=== PATIENT | male | born 1945 | race Two or more races ===

== ENCOUNTER 2019-03-07 23:22 | Emergency (ER) | payer OTHER ==
[~2019-03-07] VITALS: Ht 157.5 cm; Wt 34.0 kg
[2019-03-08 00:41] LABS: BASO # 0.1 x10^3/uL (0.0-0.2); BASO % 1 % (0-3); EOS # 0.2 x10^3/uL (0.0-0.7); EOS % 2 % (0-3); HEMATOCRIT 42.6 % (39.0-53.0); HEMOGLOBIN 14.2 g/dL (13.0-17.5); LYMPH # 1.3 x10^3/uL (1.0-4.8); LYMPH % 12 % (24-48); MEAN CORPUSCULAR HEMOGLOBIN 31 pg (25-35); MEAN CORPUSCULAR HGB CONC 33 g/dL (31-37); MEAN CORPUSCULAR VOLUME 92 fL (79-100); MONO # 0.5 x10^3/uL (0.0-1.1); MONO % 4 % (0-9); NEUT % 81 % (31-73); PLATELET COUNT 167 x10^3/uL (140-400); RED BLOOD COUNT 4.63 x10^6/uL (4.30-5.70); RED CELL DISTRIBUTION WIDTH 13.3 % (11.5-14.5)
[2019-03-08 00:53] LABS: CALCIUM 9.2 mg/dL (8.5-10.1); CREATININE 0.7 mg/dL (0.7-1.3); GFR 110.2; POTASSIUM 3.5 mmol/L (3.5-5.1)
[2019-03-08 00:59] LABS: ALBUMIN 3.4 g/dL (3.4-5.0); ALBUMIN/GLOBULIN RATIO 0.8 (1.0-1.7); TOTAL BILIRUBIN 0.3 mg/dL (0.2-1.0); TOTAL PROTEIN 7.5 g/dL (6.4-8.2)
[2019-03-08] MEDS ORDERED: ONDANSETRON PF 4 MG/2 ML VIAL. IV ONE (01:00)
[2019-03-08] MEDS ORDERED: IV NORMAL SALINE 500ML BAG 500 ML IV ONE (01:00)
--- NOTE | 2019-03-08 01:38 | RAD ---
INDICATION: Dizziness COMPARISON: None. TECHNIQUE: Axial CT images obtained through the head without intravenous contrast. One or more of the following individualized dose reduction techniques were utilized for this examination: 1. Automated exposure control; 2. Adjustment of the mA and/or kV according to patient size; 3. Use of iterative reconstruction technique. FINDINGS: No intracranial hemorrhage. No midline shift. Basal cisterns patents. Ventricles and sulci are globally prominent. No acute osseous abnormality. Orbits and paranasal sinuses unremarkable. Scattered foci of low attenuation within the white matter. IMPRESSION: 1. No acute intracranial hemorrhage. 2. Scattered regions of low attenuation within the white matter. Non-specific in nature but frequently secondary to chronic small vessel ischemic disease. 3. Prominence of ventricles and sulci which is frequently secondary to age related volume loss. Electronically signed by: Gallito Leigh MD (03/08/2019 1:36 AM) [id number]
[2019-03-08 01:54] VITALS: BP 117/63
--- NOTE | 2019-03-08 01:57 | PHYS DOC ---
Past Medical History Past Medical History: Unknown Past Surgical History: Other Alcohol Use: None Drug Use: None Adult General Chief Complaint Chief Complaint: MULTIPLE COMPLAINTS HPI HPI 73-year-old [place]oth[place] male presents secondary to weakness and dizziness. There's been no fever chills or sweats. He denies any significant headache. He doesn't describe the room is spinning just feels generally weak. Family states he's really had no other medical problems. They have noticed that he's lost some weight and is down to 75 pounds at this time. There has not been any history of cough. No complaints of abdominal pain. He has no shortness of breath. He has no headache or lateralizing neurologic weakness.[] Review of Systems Review of Systems Constitutional: Denies fever or chills [] Eyes: Denies change in visual acuity, redness, or eye pain [] HENT: Denies nasal congestion or sore throat [] Respiratory: Denies cough or shortness of breath [] Cardiovascular: No additional information not addressed in HPI [] GI: Denies abdominal pain, nausea, vomiting, bloody stools or diarrhea [] : Denies dysuria or hematuria [] Musculoskeletal: Denies back pain or joint pain [] Integument: Denies rash or skin lesions [] Neurologic: Reports dizziness[] Endocrine: Denies polyuria or polydipsia [] All other systems were reviewed and found to be within normal limits, except as documented in this note. Current Medications Current Medications Current Medications Medications (Trade) Dose Ordered Sig/Monica Start Time Stop Time Status Last Admin Dose Admin Ondansetron HCl (Zofran) 4 mg 1X ONCE 03/08/19 01:00 03/08/19 01:01 DC 03/08/19 00:36 4 MG Sodium Chloride 500 ml @ 500 mls/hr 1X ONCE 03/08/19 01:00 03/08/19 01:59 03/08/19 00:38 500 MLS/HR Allergies Allergies Allergies Coded Allergies Type Severity Reaction Last Updated Verified No Known Drug Allergies 03/08/19 No Physical Exam Physical Exam Constitutional: Frail, small elderly male in no distress. [] HENT: Normocephalic, atraumatic, bilateral external ears normal, oropharynx [address], no oral exudates, nose normal. [] Eyes: PERRLA, EOMI, conjunctiva normal, no discharge. [] Neck: Normal range of motion, no tenderness, supple, no stridor. [] Cardiovascular:Heart rate regular rhythm, no murmur [] Lungs & Thorax: Bilateral breath sounds clear to auscultation [] Abdomen: Bowel sounds normal, soft, no tenderness, no masses, no pulsatile masses. [] Skin: Warm, dry, no erythema, no rash. [] Back: No tenderness, no CVA tenderness. [] Extremities: No tenderness, no cyanosis, no clubbing, ROM intact, no edema. [] Neurologic: Alert and oriented X 3, normal motor function, normal sensory function, no focal deficits noted. [] Current Patient Data Vital Signs Vital Signs Date Time Temp Pulse Resp B/P (MAP) Pulse Ox O2 Delivery O2 Flow Rate FiO2 03/08/19 00:10 97.9 72 25 139/71 (93) 98 Room Air 97.9 Lab Values Laboratory Tests Test 03/08/19 00:28 White Blood Count 11.0 x10^3/uL (4.0-11.0) Red Blood Count 4.63 x10^6/uL (4.30-5.70) Hemoglobin 14.2 g/dL (13.0-17.5) Hematocrit 42.6 % (39.0-53.0) Mean Corpuscular Volume 92 fL (79-100) Mean Corpuscular Hemoglobin 31 pg (25-35) Mean Corpuscular Hemoglobin Concent 33 g/dL (31-37) Red Cell Distribution Width 13.3 % (11.5-14.5) Platelet Count 167 x10^3/uL (140-400) Neutrophils (%) (Auto) 81 % (31-73) H Lymphocytes (%) (Auto) 12 % (24-48) L Monocytes (%) (Auto) 4 % (0-9) Eosinophils (%) (Auto) 2 % (0-3) Basophils (%) (Auto) 1 % (0-3) Neutrophils # (Auto) 9.0 x10^3uL (1.8-7.7) H Lymphocytes # (Auto) 1.3 x10^3/uL (1.0-4.8) Monocytes # (Auto) 0.5 x10^3/uL (0.0-1.1) Eosinophils # (Auto) 0.2 x10^3/uL (0.0-0.7) Basophils # (Auto) 0.1 x10^3/uL (0.0-0.2) Sodium Level 142 mmol/L (136-145) Potassium Level 3.5 mmol/L (3.5-5.1) Chloride Level 103 mmol/L (98-107) Carbon Dioxide Level 32 mmol/L (21-32) Anion Gap 7 (6-14) Blood Urea Nitrogen 9 mg/dL (8-26) Creatinine 0.7 mg/dL (0.7-1.3) Estimated GFR (Cockcroft-Gault) 110.2 BUN/Creatinine Ratio 13 (6-20) Glucose Level 105 mg/dL (70-99) H Calcium Level 9.2 mg/dL (8.5-10.1) Total Bilirubin 0.3 mg/dL (0.2-1.0) Aspartate Amino Transferase (AST) 30 U/L (15-37) Alanine Aminotransferase (ALT) 27 U/L (16-63) Alkaline Phosphatase 63 U/L (46-116) Troponin I Quantitative < 0.017 ng/mL (0.000-0.055) Total Protein 7.5 g/dL (6.4-8.2) Albumin 3.4 g/dL (3.4-5.0) Albumin/Globulin Ratio 0.8 (1.0-1.7) L Laboratory Tests 03/08/19 00:28 Laboratory Tests 03/08/19 00:28 EKG EKG [] Interpretation Time: EKG: Normal sinus rhythm rate of [address]-T changes Radiology/Procedures Radiology/Procedures [] Impressions: PROCEDURE: CT HEAD WO CONTRAST INDICATION: Dizziness COMPARISON: None. TECHNIQUE: Axial CT images obtained through the head without intravenous contrast. One or more of the following individualized dose reduction techniques were utilized for this examination: 1. Automated exposure control; 2. Adjustment of the mA and/or kV according to patient size; 3. Use of iterative reconstruction technique. FINDINGS: No intracranial hemorrhage. No midline shift. Basal cisterns patents. Ventricles and sulci are globally prominent. No acute osseous abnormality. Orbits and paranasal sinuses unremarkable. Scattered foci of low attenuation within the white matter. IMPRESSION: 1. No acute intracranial hemorrhage. 2. Scattered regions of low attenuation within the white matter. Non-specific in nature but frequently secondary to chronic small vessel ischemic disease. 3. Prominence of ventricles and sulci which is frequently secondary to age related volume loss. Course & Med Decision Making Course & Med Decision Making Pertinent Labs and Imaging studies reviewed. (See chart for details) [ED course: Evaluation reveals a frail 73-year-old male in no significant distress. Workup to this point is unrevealing. His chest x-ray does not show any evidence of acute changes do interstitial changes but no significant his CT scan shows chronic white matter ischemic changes. I believe the patient is safe for discharge home this time.] Dragon Disclaimer Dragon Disclaimer This electronic medical record was generated, in whole or in part, using a voice recognition dictation system. Departure Departure Impression: Primary Impression: Dizziness Disposition: 01 HOME, SELF-CARE Condition: STABLE Referrals: NO PCP (PCP) Patient Instructions: Dizziness Additional Instructions: Return to the emergency department with new or concerning symptoms KIN PARADA DO Mar 08, 2019 01:57
[2019-03-08 02:04] LABS: BILIRUBIN,URINE NEGATIVE (NEG); CLARITY,URINE CLEAR; COLOR,URINE YELLOW; NITRITE,URINE NEGATIVE (NEG); PROTEIN,URINE NEGATIVE (NEG-TRACE); UROBILINOGEN,URINE 0.2 mg/dL (0.2 mg/dL)
[2019-03-08 02:12] LABS: BACTERIA,URINE 0 /HPF (0-FEW); RBC,URINE OCC /HPF (0-2); SQUAMOUS EPITHELIAL CELL,UR OCC /LPF; WBC,URINE OCC /HPF (0-4)
--- NOTE | 2019-03-08 05:49 | EKG ---
[facility] [address] [place] [address] Test Date: 2019-03-08 Test Time: 01:14:37 Pat Name: SAILAJA WALKER Department: Room: Gender: Inventory Analyst: : 1945 Requested By: KIN PARADA Order Number: [id number] Reading MD: Measurements Intervals [place] Rate: 87 P: 61 FL: 194 QRS: 80 QRSD: 86 T: 76 QT: 372 QTc: 453 Interpretive Statements SINUS RHYTHM LEFT ATRIAL ABNORMALITY QRS(T) CONTOUR ABNORMALITY CONSISTENT WITH ANTEROSEPTAL INFARCT AGE UNDETERMINED ABNORMAL ECG No previous ECG available for comparison
--- NOTE | 2019-03-08 08:42 | RAD ---
EXAM: CHEST 1 VIEW. HISTORY: Weight loss, chills. COMPARISON: None. FINDINGS: A frontal view of the chest is obtained. Hyperinflation is consistent with chronic obstructive pulmonary disease. Scattered interstitial opacities bilaterally indicate scarring or interstitial lung disease. There is no pneumothorax or clear pleural effusion. The heart is not enlarged. IMPRESSION: 1. Chronic obstructive pulmonary disease with superimposed scarring or interstitial lung disease. Electronically signed by: Tim Zimmerman MD (03/08/2019 8:39 AM) [facility]
== END 2019-03-08 02:23 | disposition home or self-care (01) ==
LOC: ER 23:22
DX: R42 Dizziness and giddiness (principal); R53.1 Weakness
CPT/HCPCS: 36415; 70450; 71045; 80053; 81001; 84484; 85025; 87086; 93005; 96361; 96374; 99285; J2405; J7040

== ENCOUNTER 2020-07-25 15:07 | Emergency (ER) | payer OTHER ==
[~2020-07-25] VITALS: Ht 160 cm; Wt 45.0 kg
[2020-07-25] MEDS ORDERED: IV NORMAL SALINE 1000ML BAG 1,000 ML IV ONE (15:45)
[2020-07-25 16:15] LABS: BASO % 1 % (0-3); EOS % 0 % (0-3); HEMATOCRIT 42.5 % (39.0-53.0); HEMOGLOBIN 14.5 g/dL (13.0-17.5); LYMPH # 1.4 x10^3/uL (1.0-4.8); LYMPH % 19 % (24-48); MEAN CORPUSCULAR HEMOGLOBIN 31 pg (25-35); MEAN CORPUSCULAR HGB CONC 34 g/dL (31-37); MEAN CORPUSCULAR VOLUME 90 fL (79-100); MONO # 0.4 x10^3/uL (0.0-1.1); MONO % 6 % (0-9); NEUT # 5.6 x10^3/uL (1.8-7.7); NEUT % 75 % (31-73); PLATELET COUNT 231 x10^3/uL (140-400); RED BLOOD COUNT 4.74 x10^6/uL (4.30-5.70); RED CELL DISTRIBUTION WIDTH 13.6 % (11.5-14.5); WHITE BLOOD COUNT 7.5 x10^3/uL (4.0-11.0)
[2020-07-25 16:17] LABS: BILIRUBIN,URINE SMALL (NEG); CLARITY,URINE CLEAR; NITRITE,URINE NEGATIVE (NEG); PH,URINE 5.5 (<5.0-8.0); PROTEIN,URINE NEGATIVE (NEG-TRACE)
[2020-07-25 16:22] LABS: COLOR,URINE YELLOW
[2020-07-25 16:22] LABS: PROTHROMBIN TIME PATIENT 13.3 SEC (11.7-14.0)
[2020-07-25 16:24] LABS: HYALINE CASTS, URINE FEW /HPF
[2020-07-25 16:25] LABS: BACTERIA,URINE 0 /HPF (0-FEW); WBC,URINE 0 /HPF (0-4)
[2020-07-25 16:30] LABS: INFLUENZA A PATIENT NEGATIVE (NEGATIVE); INFLUENZA B PATIENT NEGATIVE (NEGATIVE)
--- NOTE | 2020-07-25 16:37 | RAD ---
Single view chest dated 07/25/2020. Comparison made to 03/08/2019. Clinical data indication: Cough for 3 weeks. FINDINGS: Single upright portable exam performed. Heart and mediastinal contours are stable. Lungs are hyperinflated. There is a peripheral area of consolidation at the upper to mid zone on the right that appears more prominent from prior exam. There is also some patchy and linear perihilar opacities, similar to slightly increased. No definite pleural effusion or pneumothorax. IMPRESSION: 1. Peripheral area of consolidation at the mid to upper lung zone on the right, increased in size from prior study. Although this could be related to inflammatory process or focal pleural thickening, neoplastic processes are not excluded. Chest CT may provide additional information. 2. Patchy perihilar opacities, similar to slightly increased,. This could be related to acute on chronic bronchial inflammatory process. Atypical infection not excluded. 3. Findings consistent with COPD. Electronically signed by: Modesto Sandhu MD (07/25/2020 4:34 PM) [id number]
[2020-07-25 17:10] LABS: CALCIUM 8.4 mg/dL (8.5-10.1); CREATININE 0.7 mg/dL (0.7-1.3); GFR 109.9; POTASSIUM 4.2 mmol/L (3.5-5.1)
[2020-07-25 17:16] LABS: ALBUMIN 3.3 g/dL (3.4-5.0); ALBUMIN/GLOBULIN RATIO 0.8 (1.0-1.7); MAGNESIUM 2.1 mg/dL (1.8-2.4); TOTAL PROTEIN 7.4 g/dL (6.4-8.2)
[2020-07-25 17:24] LABS: CREATINE KINASE 67 U/L (39-308)
--- NOTE | 2020-07-25 17:34 | RAD ---
Exam: CT of chest without contrast INDICATION: Cough TECHNIQUE: Sequential axial images through the chest obtained without IV contrast. Sagittal and coronal reformatted images were reconstructed from the axial data and reviewed. Comparisons: Chest x-ray same day FINDINGS: Calcified heterogenous appearance of the thyroid. No enlarged mediastinal lymph nodes are identified. Heart size is normal. No pericardial effusion. Mild coronary artery calcifications are noted. Thoracic aorta has a normal course and caliber. Pulmonary artery is not enlarged. Airways are patent. No consolidation or pneumothorax. Strandy opacities at periphery of the lungs bilaterally greater on the right. There is a 5 mm nodule right upper lobe series 2 image 23. Right apical scarring. No pleural effusion or thickening. Visualized upper abdomen is unremarkable. No suspicious osseous lesions or acute fractures. IMPRESSION: 1. Strandy peripheral opacities at the lungs greater on the right likely related to scarring. No focal consolidation identified. 2. A 5 mm nodule in the right upper lobe. In a low-risk patient no further follow-up imaging is recommended. In a high-risk patient optional one-year follow-up CT performed. Exposure: One or more of the following in the visualized dose reduction techniques were utilized for this examination: 1. Automated exposure control 2. Adjustment of the MA and/or KV according to patient size 3. Use of iterative of reconstructive technique Electronically signed by: Gasper Simpson MD (07/25/2020 5:31 PM) [id number]
--- NOTE | 2020-07-25 18:01 | EKG ---
[facility] [address] [place] [address] Test Date: 2020-07-25 Test Time: 15:46:53 Pat Name: SAILAJA WALKER Department: Room: Gender: M Receiving Room Clerk: : 1945 Requested By: AUSTYN FORBES Order Number: [id number] Reading MD: Measurements Intervals [place] Rate: 89 P: 107 MA: 176 QRS: 93 QRSD: 84 T: 100 QT: 354 QTc: 432 Interpretive Statements SINUS RHYTHM LEFT ATRIAL ABNORMALITY RIGHTWARD AXIS QRS(T) CONTOUR ABNORMALITY CONSIDER HIGH LATERAL INFARCT ABNORMAL ECG RI6.02 No previous ECG available for comparison
[2020-07-25] MEDS ORDERED: cefTRIAXone IV Push 1 GM VIAL. IVP ONE (18:15)
[2020-07-25 18:47] VITALS: BP 123/70
[2020-07-25] MEDS ORDERED: PRED50TA PO (19:00)
[2020-07-25] MEDS ORDERED: BENZ100C PO (19:00)
[2020-07-25] MEDS ORDERED: ALBU2.5V8 IH (19:00)
--- NOTE | 2020-07-25 19:02 | PHYS DOC ---
Past Medical History Past Medical History: Unknown Past Surgical History: Other Smoking Status: Never Smoker Alcohol Use: None Drug Use: None General Adult EDM: Chief Complaint: COUGH HPI: HPI: Patient is a 74 year old male patient with unknown medical history who presents the ED today complaining of a cough for 3 weeks. Patient is Turkish speaking and is in the ED with a grand daughter who is interpreting. They deny patient having any fever, nasal congestion. Review of Systems: Review of Systems: Constitutional: Denies fever or chills. [] Eyes: Denies change in visual acuity. [] HENT: Denies nasal congestion or sore throat. [] Respiratory: Reports cough for 3 weeks, denies shortness of breath. [] Cardiovascular: Denies chest pain or edema. [] GI: Denies abdominal pain, nausea, vomiting, bloody stools or diarrhea. [] : Denies dysuria. [] Musculoskeletal: Denies back pain or joint pain. [] Integument: Denies rash. [] Neurologic: Denies headache, focal weakness or sensory changes. [] Psychiatric: Denies depression or anxiety. [] Heart Score: Risk Factors: Risk Factors: DM, Current or recent (<one month) smoker, HTN, HLP, family history of CAD, obesity. Risk Scores: Score 0 - 3: 2.5% MACE over next 6 weeks - Discharge Home Score 4 - 6: 20.3% MACE over next 6 weeks - Admit for Clinical Observation Score 7 - 10: 72.7% MACE over next 6 weeks - Early Invasive Strategies Current Medications: Current Medications Medications (Trade) Dose Ordered Sig/[facility] Start Time Stop Time Status Last Admin Dose Admin Ceftriaxone Sodium (Rocephin) 1 gm 1X ONCE 07/25/20 18:15 07/25/20 18:22 DC 07/25/20 18:50 1 GM Sodium Chloride 1,000 ml @ 1,000 mls/hr 1X ONCE 07/25/20 15:45 07/25/20 16:44 DC 07/25/20 16:03 1,000 MLS/HR Allergies: Allergies: Allergies Coded Allergies Type Severity Reaction Last Updated Verified No Known Drug Allergies 03/08/19 No Physical Exam: PE: Constitutional: Cachectic appearing patient, no acute distress, non-toxic appearance. [] HENT: Normocephalic, atraumatic, bilateral external ears normal, oropharynx moist, no oral exudates, nose normal. [] Eyes: PERRLA, EOMI, conjunctiva normal, no discharge. [] Neck: Normal range of motion, no tenderness, supple, no stridor. [] Cardiovascular:Heart rate regular rhythm, no murmur [] Lungs & Thorax: Diminished breath sounds to posterior lung bases Abdomen: Bowel sounds normal, soft, no tenderness, no masses, no pulsatile masses. [] Skin: Warm, dry, no erythema, no rash. [] Back: No tenderness, no CVA tenderness. [] Extremities: No tenderness, no cyanosis, no clubbing, ROM intact, no edema. [] Neurologic: Alert and oriented X 3, normal motor function, normal sensory function, no focal deficits noted. [] Psychologic: Affect normal, judgement normal, mood normal. [] Current Patient Data: Labs: Laboratory Tests Test 07/25/20 15:50 07/25/20 16:00 07/25/20 16:08 07/25/20 16:49 Influenza Type A Antigen Negative (NEGATIVE) Influenza Type B Antigen Negative (NEGATIVE) White Blood Count 7.5 x10^3/uL (4.0-11.0) Red Blood Count 4.74 x10^6/uL (4.30-5.70) Hemoglobin 14.5 g/dL (13.0-17.5) Hematocrit 42.5 % (39.0-53.0) Mean Corpuscular Volume 90 fL (79-100) Mean Corpuscular Hemoglobin 31 pg (25-35) Mean Corpuscular Hemoglobin Concent 34 g/dL (31-37) Red Cell Distribution Width 13.6 % (11.5-14.5) Platelet Count 231 x10^3/uL (140-400) Neutrophils (%) (Auto) 75 % (31-73) H Lymphocytes (%) (Auto) 19 % (24-48) L Monocytes (%) (Auto) 6 % (0-9) Eosinophils (%) (Auto) 0 % (0-3) Basophils (%) (Auto) 1 % (0-3) Neutrophils # (Auto) 5.6 x10^3/uL (1.8-7.7) Lymphocytes # (Auto) 1.4 x10^3/uL (1.0-4.8) Monocytes # (Auto) 0.4 x10^3/uL (0.0-1.1) Eosinophils # (Auto) 0.0 x10^3/uL (0.0-0.7) Basophils # (Auto) 0.0 x10^3/uL (0.0-0.2) Prothrombin Time 13.3 SEC (11.7-14.0) Prothrombin Time INR 1.1 (0.8-1.1) Activated Partial Thromboplast Time 36 SEC (24-38) Lactic Acid Level 2.3 mmol/L (0.4-2.0) H Urine Collection Type Unknown Urine Color Yellow Urine Clarity Clear Urine pH 5.5 (<5.0-8.0) Urine Specific [place] >=1.030 (1.000-1.030) Urine Protein Negative mg/dL (NEG-TRACE) Urine Glucose (UA) 100 mg/dL (NEG) Urine Ketones (Stick) Trace mg/dL (NEG) Urine Blood Moderate (NEG) Urine Nitrite Negative (NEG) Urine Bilirubin Small (NEG) Urine Urobilinogen Dipstick 1.0 mg/dL (0.2 mg/dL) Urine Leukocyte Esterase Negative (NEG) Urine RBC 3-5 /HPF (0-2) Urine WBC 0 /HPF (0-4) Urine Bacteria 0 /HPF (0-FEW) Urine Hyaline Casts Few /HPF Urine Mucus Marked /LPF Sodium Level 137 mmol/L (136-145) Potassium Level 4.2 mmol/L (3.5-5.1) Chloride Level 103 mmol/L (98-107) Carbon Dioxide Level 26 mmol/L (21-32) Anion Gap 8 (6-14) Blood Urea Nitrogen 19 mg/dL (8-26) Creatinine 0.7 mg/dL (0.7-1.3) Estimated GFR (Cockcroft-Gault) 109.9 BUN/Creatinine Ratio 27 (6-20) H Glucose Level 91 mg/dL (70-99) Calcium Level 8.4 mg/dL (8.5-10.1) L Magnesium Level 2.1 mg/dL (1.8-2.4) Total Bilirubin 1.0 mg/dL (0.2-1.0) Aspartate Amino Transferase (AST) 67 U/L (15-37) H Alanine Aminotransferase (ALT) 54 U/L (16-63) Alkaline Phosphatase 86 U/L (46-116) Creatine Kinase 67 U/L (39-308) Creatine Kinase MB (Mass) 0.9 ng/mL (0.0-3.6) Creatine Kinase MB Relative Index % (0-4) Troponin I Quantitative < 0.017 ng/mL (0.000-0.055) GT-Pxl-Z-Type Natriuretic Peptide 72 pg/mL (0-449) Total Protein 7.4 g/dL (6.4-8.2) Albumin 3.3 g/dL (3.4-5.0) L Albumin/Globulin Ratio 0.8 (1.0-1.7) L Procalcitonin 0.13 ng/mL (0.00-0.10) H Thyroid Stimulating Hormone (TSH) 0.309 uIU/mL (0.358-3.74) L Laboratory Tests 07/25/20 16:00 Laboratory Tests 07/25/20 16:49 Vital Signs: Vital Signs Date Time Temp Pulse Resp B/P (MAP) Pulse Ox O2 Delivery O2 Flow Rate FiO2 07/25/20 17:47 80 19 112/58 (76) 97 Room Air 07/25/20 15:25 97.9 97.9 EKG: EKG: [] Radiology/Procedures: Radiology/Procedures: []PROCEDURE: PORTABLE CHEST 1V Single view chest dated 07/25/2020. Comparison made to 03/08/2019. Clinical data indication: Cough for 3 weeks. FINDINGS: Single upright portable exam performed. Heart and mediastinal contours are stable. Lungs are hyperinflated. There is a peripheral area of consolidation at the upper to mid zone on the right that appears more prominent from prior exam. There is also some patchy and linear perihilar opacities, similar to slightly increased. No definite pleural effusion or pneumothorax. IMPRESSION: 1. Peripheral area of consolidation at the mid to upper lung zone on the right, increased in size from prior study. Although this could be related to inflammatory process or focal pleural thickening, neoplastic processes are not excluded. Chest CT may provide additional information. 2. Patchy perihilar opacities, similar to slightly increased,. This could be related to acute on chronic bronchial inflammatory process. Atypical infection not excluded. 3. Findings consistent with COPD. Electronically signed by: Lea Sandhu MD (07/25/2020 4:34 PM) [id number] DICTATED and SIGNED BY: LEA SANDHU MD DATE: 07/25/20 5515 Course & Med Decision Making: Course & Med Decision Making Pertinent Labs and Imaging studies reviewed. (See chart for details) This is a 74-year-old male patient presenting to the ED today complaining of cough for 3 weeks. Chest x-ray interpreted by radiologist was noted for consolidation at the mid upper zone on the right side increased compared to prior study. Recommended CT of the chest which was obtained and negative for any acute findings. CBC with a normal WBC, CMP with no acute findings, patient is afebrile with stable vitals. Lactic 2.3. Patient does not appear septic. He was given a liter of fluid in the ED. He was also given Rocephin. Patient was discharged to home, follow-up with PCP. COVID-19 test pending. Provided precautions related to COVID-19 including self quarantine until he gets results from us. Genia Disclaimer: Genia Disclaimer: This electronic medical record was generated, in whole or in part, using a voice recognition dictation system. Departure Departure Impression: Primary Impression: Bronchitis Additional Impression: Person under investigation for COVID-19 Disposition: 01 DC HOME SELF CARE/HOMELESS Condition: STABLE Referrals: NO PCP (PCP) follow up next week Patient Instructions: Acute Bronchitis Additional Instructions: You were evaluated in the emergency room, your work-up was negative for any acute findings. You were tested for COVID-19, your results will be called to you next week. In the meantime you quarantine yourself until you hear from us. Maintain good hand hygiene at home, rest, take the prescribed medications as ordered. Follow-up with your doctor in 1 to 2 weeks. Scripts Benzonatate (TESSALON PERLE) 100 Mg Capsule 1 CAP PO TID, #60 CAP Prov: MUTUNGAAUSTYN IRONER HAND 07/25/20 Prednisone (PREDNISONE) 50 Mg Tablet 1 TAB PO DAILY, #5 TAB Prov: MUTUNGA,AUSTYN IRONER HAND 07/25/20 Albuterol Sulfate (Proair Hfa) 8.5 Gm Hfa.aer.ad 2 PUFF IH PRN Q4-6HRS PRN for wheezing for 21 Days, #1 INHALER 0 Refills Prov: MUTUNGA,AUSTYN IRONER HAND 07/25/20 AUSTYN FORBES APRN Jul 25, 2020 19:02
--- NOTE | 2020-07-27 09:22 | NUR ---
IP: Informed son of father's negative COVID test. He verbalized understanding and translated results to his father. Both verbalized understanding.
== END 2020-07-25 19:17 | disposition home or self-care (01) ==
LOC: ER 15:07
DX: J40 Bronchitis, not specified as acute or chronic (principal); Z20.828 Contact with and (suspected) exposure to other viral communicable diseases
CPT/HCPCS: 36415; 71045; 71250; 80053; 81001; 82553; 83605; 83735; 83880; 84145; 84443; 84484; 85025; 85610; 85730; 87040; 87804; 93005; 96361; 96374; 99285; C9803; J0696; J7030; U0003

== ENCOUNTER 2021-04-05 16:38 | Emergency (ER) | payer OTHER ==
[~2021-04-05] VITALS: Ht 152.4 cm; Wt 40.9 kg
[~2021-04-05 16:38] MED LIST: ALBU2.5V8 IH; BENZ100C PO; PRED50TA PO
[2021-04-05] MEDS ORDERED: ACETAMINOPHEN 500 MG TABLET PO ONE (18:30)
[2021-04-05] MEDS ORDERED: BENZONATATE 100 MG CAPSULE. PO ONE (18:30)
[2021-04-05] MEDS ORDERED: IPRATRPIUM/ALBUTEROL 0.5/2.5MG 3 ML NEBU. NEB ONE (18:30)
--- NOTE | 2021-04-05 18:33 | PHYS DOC ---
Past Medical History Past Medical History: Unknown Past Surgical History: Other Smoking Status: Never Smoker Alcohol Use: None Drug Use: None General Adult EDM: Chief Complaint: COUGH HPI: HPI: Patient is a 75 year old male who presents to the emergency department chief complaint of cough for the past 4 days. Patient is from [facility] however does not speak [place], family member states he speaks [place], cope interpretation service does not have medical orderly for this dialect. Patient's granddaughter is at bedside who is interpreting for patient. Patient denies chest pains, nausea, shortness of breath, nasal congestion, or recent fever or chills. Does report a sore throat, nonproductive cough, states his throat has a salty taste to it. Denies loss of taste or loss of smell. Denies vomiting or diarrhea. Denies rashes of his skin. Patient denies any other physical complaints or physical concerns. Patient denies allergies to medications, does not take any prescription medications at home, does not see a primary care physician, states he goes to the [facility] and takes "the white pill that helps me "patient does not know the name of the medication that he purchases from the [facility] pharmacy. Patient reports receiving the COVID-19 vaccine, second dose 3 months ago. Patient denies history of cigarette smoking, has an occasional glass of wine, denies illicit drug use. Review of Systems: Review of Systems: 14 body systems of review of systems have been reviewed. See HPI for pertinent positives and negative responses, otherwise all other systems are negative, nonpertinent or noncontributory. Heart Score: C/O Chest Pain: No Risk Factors: Risk Factors: DM, Current or recent (<one month) smoker, HTN, HLP, family hist ory of CAD, obesity. Risk Scores: Score 0 - 3: 2.5% MACE over next 6 weeks - Discharge Home Score 4 - 6: 20.3% MACE over next 6 weeks - Admit for Clinical Observation Score 7 - 10: 72.7% MACE over next 6 weeks - Early Invasive Strategies Current Medications: Current Medications Medications (Trade) Dose Ordered Sig/Monica Start Time Stop Time Status Last Admin Dose Admin Acetaminophen (Tylenol) 1,000 mg 1X ONCE 04/05/21 18:30 04/05/21 18:31 UNV Albuterol/ Ipratropium (Duoneb) 3 ml 1X ONCE 04/05/21 18:30 04/05/21 18:31 UNV Benzonatate (Tessalon Perle) 100 mg 1X ONCE 04/05/21 18:30 04/05/21 18:31 UNV Allergies: Allergies: Allergies Coded Allergies Type Severity Reaction Last Updated Verified No Known Drug Allergies 03/08/19 No Physical Exam: PE: Constitutional: Well developed, well nourished, no acute distress, non-toxic appearance. Patient is coughing during physical examination. Otherwise in no apparent distress. In no obvious respiratory distress. HENT: Normocephalic, atraumatic, bilateral external ears normal, oropharynx moist, no oral exudates, nose normal. Oropharynx mildly erythematous without uvular edema, no tonsillar edema appreciated, no laryngeal edema. Bilateral TMs within normal limits, patient does wear hearing aid in left auditory canal, no drainage from bilateral auditory canals. No lymphadenopathy of the head or neck appreciated. Patient has no dentition, no drooling, no trismus appreciated. Eyes: Conjunctiva normal, no discharge. Neck: Normal range of motion, no tenderness, supple, no stridor. No nuchal rigidity, no meningismus signs. Cardiovascular:Heart rate regular rhythm, end diastolic murmur appreciated. PMI to the left. Lungs & Thorax: Bilateral breath sounds clear to auscultation all lung p[place]man, no adventitious lung sounds appreciated. Abdomen: Bowel sounds normal, soft, no tenderness, no masses, no pulsatile masses. Skin: Warm, dry, no erythema, no rash. Back: No tenderness, no CVA tenderness. Extremities: No tenderness, no cyanosis, no clubbing, ROM intact, no edema. Neurologic: Alert and oriented X 3, normal motor function, normal sensory fu nction, no focal deficits noted. Psychologic: Affect normal, judgement normal, mood normal. EKG: EKG: EKG performed at 1841 by ED staff shows a normal sinus rhythm with a left atrial abnormality and incomplete bundle branch block RVH with repolarization abnormality, heart rate is 94 bpm, no ectopy is appreciated, DC interval 0.154, QTc interval 0.405, no acute STEMI, no ACS, no acute ischemia appreciated. EKG interpreted by ED attending physician Dr. Feldman. Radiology/Procedures: Radiology/Procedures: PATIENT: SAILAJA WALKER ACCOUNT: [id number] : 1945 LOCATION: ER AGE: 75 SEX: M EXAM STATUS: REG ER ORD. PHYSICIAN: LEA RITCHIE APRN REASON: cough PROCEDURE: CHEST PA & LATERAL XR CHEST 2V History: Reason: cough / Spl. Instructions: / History: Comparison: July 25, 2020 Findings: Hyperinflation with emphysematous changes. Biapical pleural thickening, right g reater than left, unchanged. Bilateral ill-defined opacities, similar compared to prior. No new consolidation. Pleural thickening. No pleural effusion. No pneumothorax. Unchanged heart size. Mild deviation of the trachea to the right, unchanged. Surgical clips right upper quadrant. Impression: 1. Hyperinflation with emphysematous changes and ill-defined opacities. No new consolidation. Electronically signed by: Dario Jones DO (04/05/2021 6:50 PM) [facility] DICTATED and SIGNED BY: DARIO JONES DO DATE: 04/05/21 [id number] Course & Med Decision Making: Course & Med Decision Making Pertinent Labs and Imaging studies reviewed. (See chart for details) 75-year-old male, vital signs reviewed, presents emergency department concerning cough for the past 4 days. The patient physical presentation was nontoxic in appearance, lung sounds were clear to auscultate, after chart review, patient has been seen here in the past for similar symptoms however it was noted patient had diastolic murmur, this has not been noted in previous physical examinations, will order EKG, troponin I, proBNP, CBC, D-dimer, CMP. Chest x-ray. DuoNeb treatment, Bettie Aguilera Chest x-ray concerning for emphysema changes otherwise no changes from previous chest x-ray from 2019. Labs not resulted at this time, ED nursing staff reports labs were hemolyzed and require redraw. Upon reevaluation of the patient, patient states he feels much better and wishes to go home, labs have not been redrawn at this time, discussed with patient with physical examination changes from previous admission would like to wait until labs have been resulted, patient states he will wait. Patient's proBNP unremarkable, however patient's D-dimer markedly elevated, patient is continuing to have dry cough at bedside, currently denies shortness of breath and is not hypoxic however related to elevated D-dimer will order CT angio chest to rule out pulmonary emboli. CT chest negative for pulmonary emboli, suggestive for COPD emphysema, discussed findings with patient, patient states that he feels better and wishes to go home, patient is in no obvious respiratory distress and is not hypoxic, bedside oxygen saturation is 100% on room air. Patient's lung sounds clear to auscultation upper lobes diminished lower lobes. Discussed with patient findings of emphysema on CT scan, recommended to patient strict follow-up with primary care provider, discussed with patient home medications of oral steroid, Tessalon Perle, albuterol MDI, obtaining Robitussin-DM, increasing fluids to help thin secretions of the lung. Patient gave verbal understanding of discharge home instructions, follow-up with PCP, patient was given resources for follow-up healthcare providers, return to ER precautions and concerns, patient was thankful and continues to wish to go home, patient is in no respiratory distress, is hemodynamically stable, patient was discharged home without incident. Genia Disclaimer: Genia Disclaimer: This electronic medical record was generated, in whole or in part, using a voice recognition dictation system. Departure Departure Impression: Primary Impression: Bronchitis Additional Impression: Emphysema of lung Qualified Codes: J43.9 - Emphysema, unspecified Disposition: 01 HOME / SELF CARE / HOMELESS Condition: GOOD Referrals: NO PCP (PCP) Patient Instructions: Bronchitis Additional Instructions: You were seen today in the emergency department for you were treated with a cough medication called Tessalon Perles and a steroid called Solu-Medrol. You stated that you were feeling better from these medications. You are no longer coughing. You are maintaining a satisfactory oxygen saturation of 99 to 100%. The CT of your chest showed changes suggesting emphysema. I recommend that you see a physician for follow-up and treatment for ongoing care. I have provided you resources for healthcare outside of the emergency room. Please follow-up with a primary care provider this week. I am prescribing you cough medicine Tessalon Perle, prednisone that you will take 1 tablet daily for 5 days, and an additional albuterol inhaler. Please obtain [id number] Robitussin DM and take as directed to help loosen secretions so that you will breathe better. I encourage you to return to the emergency department for worsening symptoms or other concerns. It was a pleasure taking care of you today in the emergency department and I thank you for allowing me to participate in your emergency healthcare needs. EMERGENCY DEPARTMENT GENERAL DISCHARGE INSTRUCTIONS Thank you for coming to [facility] Emergency Department (ED) today and trusting us with you care. We trust that you had a positive experience in our Emergency Department. If you wish to speak to the department management, you may call the Director at [phone]. YOUR FOLLOW UP INSTRUCTIONS ARE FOLLOWS: 1. Do you have a private Doctor? If you do not have a private doctor, please ask for a resource list of physicians or clinics that may be able to assist you with follow up care. 2. The Emergency Physicain has interpreted your x-rays. The X-Ray specialist will also review them. If there is a change in the findings, you will be notified in 48 hours when at all possible. 3. A lab test or culture has been done, your results will be reviewed and you will be notified if you need a change in treatment. ADDITIONAL INSTRUCTIONS AND INFORMATION: 1. Your care today has been supervised by a physician who is specially trained in emergency care. Many problems require more than one evaluation for a complete diagnosis and treatment. We recommend that you schedule your follow up appointment as recommended to ensure complete treatment of you illness or injury. If you are unable to obtain follow up care and continue to have a problem, or if your condition worsens, we recommend that you return to the ED. 2. We are not able to safely determine your condition over the phone nor are we able to give sound medical advice over the phone. For these safety reasons, if you call for medical advice we will ask you to come to the ED for further evaluation. 3. If you have any questions regarding these discharge instructions please call the ED at [phone]. SAFETY INFORMATION: In the interest of safety, wellness, and injury prevention; we encourage you to wear your sealbelt, if you smoke; quite smoking, and we encourage family to use a protective helmet for bicycling and other sporting events that present an increased risk for head injury. IF YOUR SYMPTOMS WORSEN OR NEW SYMPTOMS DEVELOP, OR YOU HAVE CONCERNS ABOUT YOUR CONDITION; OR IF YOUR CONDITION WORSENS WHILE YOU ARE WAITING FOR YOUR FOLLOW UP APPOINTMENT; EITHER CONTACT YOUR PRIMARY CARE DOCTOR, THE PHYSICIAN WHOSE NAME AND NUMBER YOU WERE GIVEN, OR RETURN TO THE ED IMMEDIATELY. Scripts Albuterol Sulfate (PROAIR HFA INHALER) 8.5 Gm Hfa.aer.ad 2 PUFF IH PRN Q4-6HRS PRN for wheezing for 21 Days, #1 INHALER 0 Refills Prov: LEA RITCHIE APRN 04/05/21 Benzonatate (TESSALON PERLE) 100 Mg Capsule 1 CAP PO TID for cough, #60 CAP 0 Refills Prov: LEA RITCHIE APRN 04/05/21 Prednisone (PREDNISONE) 50 Mg Tablet 1 TAB PO DAILY for copd, #5 TAB 0 Refills Prov: LEA RITCHIE APRN 04/05/21 LEA RITCHIE APRN Apr 05, 2021 18:33
--- NOTE | 2021-04-05 18:52 | RAD ---
XR CHEST 2V History: Reason: cough / Spl. Instructions: / History: Comparison: July 25, 2020 Findings: Hyperinflation with emphysematous changes. Biapical pleural thickening, right greater than left, unch anged. Bilateral ill-defined opacities, similar compared to prior. No new consolidation. Pleural thic kening. No pleural effusion. No pneumothorax. Unchanged heart size. Mild deviation of the trachea to the right, unchanged. Surgical clips right upper quadrant. Impression: 1. Hyperinflation with emphysematous changes and ill-defined opacities. No new consolidation. Electronically signed by: Dario Jones DO (04/05/2021 6:50 PM) [facility]
[2021-04-05 19:12] LABS: BASO % 0 % (0-3); EOS # 0.1 x10^3/uL (0.0-0.7); EOS % 1 % (0-3); HEMATOCRIT 40.1 % (39.0-53.0); HEMOGLOBIN 13.5 g/dL (13.0-17.5); LYMPH # 1.3 x10^3/uL (1.0-4.8); LYMPH % 13 % (24-48); MEAN CORPUSCULAR HEMOGLOBIN 31 pg (25-35); MEAN CORPUSCULAR HGB CONC 34 g/dL (31-37); MEAN CORPUSCULAR VOLUME 91 fL (79-100); MONO # 0.6 x10^3/uL (0.0-1.1); MONO % 6 % (0-9); NEUT # 8.1 x10^3/uL (1.8-7.7); NEUT % 79 % (31-73); PLATELET COUNT 259 x10^3/uL (140-400); RED CELL DISTRIBUTION WIDTH 13.4 % (11.5-14.5); WHITE BLOOD COUNT 10.2 x10^3/uL (4.0-11.0)
[2021-04-05 20:10] LABS: CALCIUM 9.1 mg/dL (8.5-10.1); CREATININE 0.5 mg/dL (0.7-1.3); GFR 161.7; POTASSIUM 3.6 mmol/L (3.5-5.1)
[2021-04-05 20:15] LABS: ALBUMIN/GLOBULIN RATIO 0.7 (1.0-1.7); TOTAL BILIRUBIN 0.5 mg/dL (0.2-1.0); TOTAL PROTEIN 7.4 g/dL (6.4-8.2)
--- NOTE | 2021-04-05 20:55 | EKG ---
[facility] [address] [place] [address] Test Date: 2021-04-05 Test Time: 18:41:56 Pat Name: SAILAJA WALKER Department: Room: Gender: Purchasing Specialist: : 1945 Requested By: LEA RITCHIE Order Number: [id number] Reading MD: Jarad Amador Measurements Intervals [place] Rate: 94 P: 74 CO: 154 QRS: 79 QRSD: 86 T: 77 QT: 320 QTc: 405 Interpretive Statements SINUS RHYTHM LEFT ATRIAL ABNORMALITY INCOMPLETE RIGHT BUNDLE BRANCH BLOCK ABNORMAL ECG Electronically Signed On 04-07-2021 11:55:21 CDT by Jarad Amador
[2021-04-05] MEDS ORDERED: CONTRAST GIVEN. MC PRN (21:00)
[2021-04-05] MEDS ORDERED: IOHEXOL 350 MG/ML 100 ML VIAL. IV ONE (21:00)
[2021-04-05 21:10] VITALS: BP 123/70
--- NOTE | 2021-04-05 21:58 | RAD ---
CT arteriogram of the chest. HISTORY: Elevated d-dimer, cough, short of breath CT arteriogram of the chest was done using 75 in now Omnipaque 350 contrast. Sagittal and coronal MIP images were reconstructed. This study is negative for evidence of a pulmonary embolus. There is dung bronchial thickening bilaterally. There are mild peripheral infiltrates. There is pleural thickening bilaterally. There is mucous plugging especially in the lingula and peripherally in the lungs. The pa ttern is similar to an old CT from July 2020. There is no mediastinal adenopathy. Thyroid is homog eneous. Visualized portions the liver and spleen are unremarkable. IMPRESSION: 1. Negative for a pulmonary embolus. 2. Bilateral pleural thickening. 3. Peribronchial thickening bilaterally. 4. Mucous plugging bilaterally. 5. Mild peripheral infiltrates, pattern is similar to the prior exam. PQRS Compliance Statement: One or more of the following individualized dose reduction techniques were utilized for this examinat ion: 1. Automated exposure control 2. Adjustment of the mA and/or kV according to patient size 3. Use of iterative reconstruction technique Electronically signed by: Lito Álvarez MD (04/05/2021 9:56 PM) [facility]
[2021-04-05] MEDS ORDERED: BENZ100C PO (22:59)
[2021-04-05] MEDS ORDERED: PRED50TA PO (22:59)
[2021-04-05] MEDS ORDERED: ALBU2.5V8 IH (22:59)
[2021-04-05] MEDS ORDERED: methylPREDNISolone SOD SUCC PF 125 MG/2 ML VIAL. IV ONE (23:00)
== END 2021-04-05 23:12 | disposition home or self-care (01) ==
LOC: ER 16:38
DX: J40 Bronchitis, not specified as acute or chronic (principal); J43.9 Emphysema, unspecified
CPT/HCPCS: 36415; 71046; 71275; 80053; 83605; 83880; 84484; 85025; 85379; 87070; 87880; 93005; 94640; 96361; 96374; 99285; J2930; Q9967